=== PATIENT | male | born 1955 | race Caucasian/White ===

== ENCOUNTER 2016-11-09 19:16 | Emergency (ER) | payer BC ==
[~2016-11-09] VITALS: Ht 165.1 cm; Wt 72.7 kg
[2016-11-09] MEDS ORDERED: SODIUM CHLORIDE 0.9% 1,000 ML IV ONE (19:49)
[2016-11-09] MEDS ORDERED: OMNIPAQUE 350 MG/ML, 100ML BOTTLE ONE (19:50)
[2016-11-09] MEDS ORDERED: FAMOTIDINE 20 MG/2 ML IVPush ONE (20:00)
[2016-11-09] MEDS ORDERED: ONDANSETRON 2MG/ML, 2ML IVPush ONE (20:00)
[2016-11-09] MEDS ORDERED: ONDANSETRON 2MG/ML, 2ML ONE (20:04)
[2016-11-09 20:11] LABS: HEMATOCRIT 43.4 % (39.2-51.8); HEMOGLOBIN 14.6 g/dL (13.7-18.0); WHITE BLOOD COUNT 10.6 x10^3/uL (3.4-10)
[2016-11-09 20:26] LABS: ASPARTATE AMINO TRANSFERASE 17 U/L (15-37); BLOOD UREA NITROGEN 12 mg/dL (7-18)
[2016-11-09 22:22] VITALS: BP 133/77
== END 2016-11-09 22:24 | disposition home or self-care (01) ==
LOC: ED 20:01
DX: K62.89 Other specified diseases of anus and rectum (principal); K64.4 Residual hemorrhoidal skin tags; G35 Multiple sclerosis; N30.00 Acute cystitis without hematuria
CPT/HCPCS: 36415; 74177; 80053; 81001; 83605; 83690; 85025; 85610; 86677; 86850; 86900; 87077; 87086; 87186; 93005; 96361; 96374; 96375; 99285; J2405; J7030; Q9967; S0028